=== PATIENT | male | born 1945 | race Caucasian/White ===

== ENCOUNTER 2017-07-15 20:43 | Emergency (ER) | payer MEDICARE ==
[~2017-07-15] VITALS: Ht 170.2 cm; Wt 83.4 kg
[~2017-07-15 20:43] MED LIST: ASPI-1264 PO; IRBE150T27 PO; MULT-1085 PO; SIMV20TA5 PO; TEST5GEL2 TOP
[2017-07-15 20:46] VITALS: BP 133/85
== END 2017-07-16 00:19 | disposition left against medical advice (07) ==
LOC: ER 20:44
DX: R06.00 Dyspnea, unspecified (principal); Z53.21 Procedure and treatment not carried out due to patient leaving prior to being seen by health care provider

== ENCOUNTER 2019-08-18 09:29 | Outpatient (CLI) | payer MEDICARE ==
[~2019-08-18 09:29] MED LIST changes: +IRBE150T24 PO; -IRBE150T27 PO; +SIMV-42 PO; -SIMV20TA5 PO
== END 2019-08-18 23:59 | disposition home or self-care (01) ==
LOC: LAB SPEC 09:29
PROVIDERS: ATTEND Orthopaedic Surgery
DX: L03.012 Cellulitis of left finger (principal)
CPT/HCPCS: 87070; 87077; 87186

== ENCOUNTER 2019-09-20 10:12 | Day surgery (SDC) | payer MEDICARE, BC ==
--- NOTE | 2019-09-15 12:13 | NUR ---
PT HAS NEGATIVE COVID TEST RESULTS FROM [facility] ON HIS PHONE FROM September. SPOKE WITH REGINO Phelan. SHE STATED OK TO USE THESE RESULTS.
[2019-09-15 12:51] LABS: CLARITY,URINE CLEAR (Clear); COLOR,URINE YELLOW (Yellow); GLUCOSE, URINE NEGATIVE (Neg); KETONES,URINE NEGATIVE (Neg); LEUKOCYTE ESTERASE ,URINE NEGATIVE (Neg); NITRITES, URINE NEGATIVE (Neg); OCCULT BLOOD,URINE NEGATIVE (Neg); PH,URINE 5.5 (4.8-8.0); PROTEIN,URINE NEGATIVE (Neg); UA COLLECTION TYPE VOIDED; UROBILINOGEN,URINE 0.2 E.U/dL (0.2-1.0)
[2019-09-15 12:52] LABS: BASOPHILS % (AUTO) 0.5 % (0-1); EOSINOPHILS # (AUTO) 0.1 X10'3 (0-0.9); EOSINOPHILS % (AUTO) 1.2 % (0-6); LYMPHOCYTES # (AUTO) 0.9 X10'3 (1.1-4.8); LYMPHOCYTES % (AUTO) 18.9 % (21-51); MEAN CORPUSCULAR HEMOGLOBIN 33.9 PG (27.0-31.0); MEAN CORPUSCULAR HGB CONC 33.8 g/dL (33.0-36.5); MEAN CORPUSCULAR VOLUME 100.3 FL (78-98); MEAN PLATELET VOLUME 8.2 FL (7.4-10.4); MONOCYTES # (AUTO) 0.4 X10'3 (0-0.9); MONOCYTES % (AUTO) 8.2 % (2-12); NEUTROPHILS # (AUTO) 3.5 X10'3 (1.8-7.7); NEUTROPHILS % (AUTO) 71.2 % (42-75); PRE OP HEMATOCRIT 40.5 % (42.0-52.0); PRE OP HEMOGLOBIN 13.7 g/dL (14.0-17.9); PRE OP PLATELET COUNT 180 X10'3 (140-440); RED BLOOD COUNT 4.04 X10'6 (4.70-6.10); RED CELL DISTRIBUTION WIDTH 13.4 % (11.5-14.5)
[2019-09-15 13:02] LABS: PRE OP PROTIME 10.7 SECONDS (9.0-12.0)
[2019-09-15 13:04] LABS: ALBUMIN 3.8 G/DL (3.4-5.0); ALBUMIN/GLOBULIN RATIO 1.3 (1.1-1.5); ALKALINE PHOSPHATASE 70 IU/L (46-116); BLOOD UREA NITROGEN 23 MG/DL (7-18); BUN/CREATININE RATIO 19.3 (5.4-32.0); CHLORIDE 104 MMOL/L (99-107); CREATININE 1.19 MG/DL (0.60-1.10); PRE OP ALT 21 U/L (30-65); PRE OP ANION GAP 6 (8-16); PRE OP AST 19 U/L (10-37); PRE OP BILIRUB, TOTAL 0.7 MG/DL (0.0-1.0); PRE OP GLUCOSE 145 MG/DL (70-104); PRE OP SODIUM 137 MMOL/L (135-145); TOTAL CARBON DIOXIDE 27.2 MMOL/L (24-32); TOTAL PROTEIN 6.8 G/DL (6.4-8.2); eGFR 60 ML/MIN
[~2019-09-20] VITALS: Ht 170.2 cm; Wt 92.0 kg
[2019-09-20] VITALS (7 sets, daily range): BP systolic 122–145; BP diastolic 65–93
[~2019-09-20 10:12] MED LIST changes: +CELE-193 PO; +ERGO400C PO; -MULT-1085 PO; +OMEP20TA5 PO; +ceFAZolin 2gm in dextrose, iso 50 ML IV ONE; +famotidine 20mg tablet PO ONE; +ringers solution, lacted 1,000 ML IV SCH
[2019-09-20] MEDS ORDERED: BUPIVAcaine/PF 2.5 mg/ml (0.25%) 30ml vial ONE ×2 (11:44→11:52)
[2019-09-20] MEDS ORDERED: ceFAZolin 1000mg inj ONE (11:44)
[2019-09-20] MEDS ORDERED: ringers solution, lacted 1,000 ML IV SCH (12:27)
[2019-09-20] MEDS ORDERED: hydrALAZINE 20mg/ml inj. IV PRN (12:30)
[2019-09-20] MEDS ORDERED: morphine 4 MG/ML inj SYRINge IV PRN (12:30)
[2019-09-20] MEDS ORDERED: fentaNYL/PF 50MCG/1 ML 2ML syringe IV PRN ×2 (12:30)
[2019-09-20] MEDS ORDERED: morphine 2 MG/ML inj. syringe IV PRN (12:30)
[2019-09-20] MEDS ORDERED: ondansetron/PF 4mg/2ml inj IV PRN (12:30)
[2019-09-20] MEDS ORDERED: labetalol 20mg/4ml (5mg/ml) syringe IV PRN (12:30)
[2019-09-20] MEDS ORDERED: midazolam 2 mg/2 ml injection ONE (12:37)
[2019-09-20] MEDS ORDERED: fentaNYL/PF 50MCG/1 ML 2ML syringe ONE (12:37)
[2019-09-20] MEDS ORDERED: rocuronium 10mg/ml inj IV ONE (12:38)
[2019-09-20] MEDS ORDERED: LIDOcaine 2% (20mg/ml) 5ml vial ONE (12:39)
[2019-09-20] MEDS ORDERED: propofol inj 20 ML IV ONE (12:39)
[2019-09-20] MEDS ORDERED: ondansetron/PF 4mg/2ml inj ONE (12:39)
[2019-09-20] MEDS ORDERED: sevoflurane 250ml liquid IH ONE (13:18)
[2019-09-20] MEDS ORDERED: dexamethasone sod phosphate 10mg/ml inj ONE (13:18)
[2019-09-20] MEDS ORDERED: glycopyrrolate 0.2mg/ml inj ONE (13:18)
[2019-09-20] MEDS ORDERED: labetalol 20mg/4ml (5mg/ml) syringe IV ONE (13:46)
[2019-09-20] MEDS ORDERED: neostigmine methylsulfate 1 MG/ML 10ml vial ONE (13:54)
--- NOTE | 2019-09-20 15:02 | NUR ---
All dc criteria for discharge home has been met. IV taken out without complications. All questions answered regarding dc paperwork. Vss. Significant other present to take patient home. Dressings cdi and vital signs stable. Taken out via wheelchair to personal vehicle where patient taken home by family/friend. Addendum: 09/20/19 at 1803 by Jac Morgan RN, RN Amended: Links added.
== END 2019-09-20 15:02 | disposition home or self-care (01) ==
LOC: PAS 10:12
PROVIDERS: ATTEND Surgery
DX: R10.30 Lower abdominal pain, unspecified (principal); K66.0 Peritoneal adhesions (postprocedural) (postinfection); M19.90 Unspecified osteoarthritis, unspecified site; K21.9 Gastro-esophageal reflux disease without esophagitis; I10 Essential (primary) hypertension; Z98.890 Other specified postprocedural states; Z79.899 Other long term (current) drug therapy; Z96.611 Presence of right artificial shoulder joint; Z72.89 Other problems related to lifestyle; Z86.14 Personal history of Methicillin resistant Staphylococcus aureus infection; Z88.5 Allergy status to narcotic agent
CPT/HCPCS: 36415; 49329; 80053; 81003; 82948; 85025; 85610; 85730; 93005; C1727; J0690; J1100; J2001; J2250; J2405; J2704; J2710; J3010; J3490; J7120; A4215; A4314; A4618; A6258

== ENCOUNTER 2022-06-19 07:54 | Day surgery (SDC) | payer MEDICARE, BC ==
[2022-06-19] VITALS (10 sets, daily range): BP systolic 104–139; BP diastolic 71–87
[~2022-06-19] VITALS: Ht 170.2 cm; Wt 86.2 kg
[~2022-06-19 07:54] MED LIST changes: +OMEP20TA43 PO; -OMEP20TA5 PO; -ceFAZolin 2gm in dextrose, iso 50 ML IV ONE; -famotidine 20mg tablet PO ONE; -ringers solution, lacted 1,000 ML IV SCH
[2022-06-19] MEDS ORDERED: normal saline 1,000 ML IV SCH (08:20)
[2022-06-19] MEDS ORDERED: diphenhydrAMINE 25mg capsule PO PRN (08:20)
[2022-06-19] MEDS ORDERED: sodium bicarbonate 1meq/ml syr 150 ML in dextrose 5%-water 850 ML IV ONE (08:20)
[2022-06-19] MEDS ORDERED: FURO20TA4 PO (08:28)
[2022-06-19] MEDS ORDERED: METO-395 PO (08:28)
[2022-06-19] MEDS ORDERED: RIVA20TA PO (08:29)
[2022-06-19] MEDS ORDERED: EMPA10TA PO (08:29)
[2022-06-19] MEDS ORDERED: SPIR25TA5 PO (08:30)
[2022-06-19 09:01] LABS: BASOPHILS % (AUTO) 0.3 % (0-1); EOSINOPHILS # (AUTO) 0.1 X10'3 (0-0.9); EOSINOPHILS % (AUTO) 2.2 % (0-6); HEMATOCRIT 49.9 % (42.0-52.0); LYMPHOCYTES # (AUTO) 1.1 X10'3 (1.1-4.8); LYMPHOCYTES % (AUTO) 19.7 % (21-51); MEAN CORPUSCULAR HEMOGLOBIN 34.7 PG (27.0-31.0); MEAN CORPUSCULAR HGB CONC 34.2 g/dL (33.0-36.5); MEAN CORPUSCULAR VOLUME 101.6 FL (78-98); MEAN PLATELET VOLUME 7.8 FL (7.4-10.4); MONOCYTES # (AUTO) 0.5 X10'3 (0-0.9); MONOCYTES % (AUTO) 10.1 % (2-12); NEUTROPHILS # (AUTO) 3.6 X10'3 (1.8-7.7); NEUTROPHILS % (AUTO) 67.7 % (42-75); PLATELET COUNT 209 X10'3 (140-440); RED BLOOD COUNT 4.91 X10'6 (4.70-6.10); RED CELL DISTRIBUTION WIDTH 13.7 % (11.5-14.5); WHITE BLOOD COUNT 5.4 X10'3 (4.5-11.0)
[2022-06-19 09:08] LABS: ANION GAP 7 (8-16); BLOOD UREA NITROGEN 26 MG/DL (7-18); BUN/CREATININE RATIO 18.7 (5.4-32.0); CALCIUM 9.1 MG/DL (8.5-10.1); CHLORIDE 101 MMOL/L (99-107); CREATININE 1.39 MG/DL (0.60-1.10); GLUCOSE 91 MG/DL (70-104); MAGNESIUM 2.1 MG/DL (1.5-2.4); SODIUM 139 MMOL/L (135-145); TOTAL CARBON DIOXIDE 30.8 MMOL/L (24-32); eGFR 50 ML/MIN
[2022-06-19] MEDS ORDERED: heparin 1,000unit/ml 10ml vial 10 ML ONE (10:51)
[2022-06-19] MEDS ORDERED: iohexol 350MG/ML 100ml bottle IV ONE (10:51)
[2022-06-19] MEDS ORDERED: nitroGLYCERIN-Tridil 50MG/D5W 250 ML IV ONE (10:51)
[2022-06-19] MEDS ORDERED: LIDOcaine 1% 30ml preserv. free vial ONE (10:51)
[2022-06-19] MEDS ORDERED: fentaNYL/PF 50MCG/1 ML 2ML syringe ONE (10:51)
[2022-06-19] MEDS ORDERED: midazolam 1 mg/ML 2ml injection ONE ×2 (10:51→12:42)
[2022-06-19] MEDS ORDERED: verapamil 2.5 mg/ml inj IV ONE (10:51)
[2022-06-19] MEDS ORDERED: iohexol 350 MG/ML 50ML vial IV ONE (10:52)
[2022-06-19] MEDS ORDERED: proCHLORperazine 10 MG/2 ml inj ONE (12:42)
[2022-06-19] MEDS ORDERED: HYDROcodone/acetaminophen 5mg/325mg tablet PO PRN (13:55)
[2022-06-19] MEDS ORDERED: HYDROcodone/acetaminophen 10/325mg tab PO PRN (13:55)
[2022-06-19] MEDS ORDERED: proCHLORperazine 10 MG/2 ml inj IV PRN (13:55)
[2022-06-19] MEDS ORDERED: normal saline 1000ml 1,000 ML IV SCH (13:55)
[2022-06-19] MEDS ORDERED: ondansetron/PF 4mg/2ml inj IV PRN (13:55)
== END 2022-06-19 17:00 | disposition home or self-care (01) ==
LOC: SSTAY O 07:54
PROVIDERS: ATTEND Internal Medicine Cardiovascular Disease
DX: R07.89 Other chest pain (principal); I48.91 Unspecified atrial fibrillation; I10 Essential (primary) hypertension; E78.00 Pure hypercholesterolemia, unspecified; Z96.641 Presence of right artificial hip joint; Z96.652 Presence of left artificial knee joint; Z98.890 Other specified postprocedural states; Z96.611 Presence of right artificial shoulder joint; Z96.612 Presence of left artificial shoulder joint; Z72.89 Other problems related to lifestyle; Z79.899 Other long term (current) drug therapy; Z81.8 Family history of other mental and behavioral disorders
CPT/HCPCS: 36415; 80048; 83735; 85025; 85610; 93005; 93458; 99152; 99153; C1769; C1894; J0780; J1644; J2250; J3010; J3490; J7030; Q0163; Q9967; A6258; A6402

== ENCOUNTER 2022-10-09 06:45 | Day surgery (SDC) | payer MEDICARE, BC ==
[2022-10-09] VITALS (12 sets, daily range): BP systolic 94–123; BP diastolic 55–81
[~2022-10-09] VITALS: Ht 170.2 cm; Wt 89.1 kg
[~2022-10-09 06:45] MED LIST changes: -ASPI-1264 PO; +EMPA10TA PO; -ERGO400C PO; +FURO20TA4 PO; +METO-395 PO; +RIVA20TA PO; +SPIR25TA5 PO
[2022-10-09] MEDS ORDERED: MIDAZolam 1mg/ml 10ml vial IV ONE (07:05)
[2022-10-09] MEDS ORDERED: normal saline 1000ml 1,000 ML IV SCH ×2 (07:05→07:25)
[2022-10-09] MEDS ORDERED: TEST200V33 IM (07:08)
[2022-10-09] MEDS ORDERED: fentaNYL/PF 50MCG/1 ML 2ML syringe IV ONE (07:25)
[2022-10-09] MEDS ORDERED: morphine 10mg/ml inj. IV ONE (07:25)
[2022-10-09 07:28] LABS: BASOPHILS % (AUTO) 0.4 % (0-1); EOSINOPHILS # (AUTO) 0.1 X10'3 (0-0.9); EOSINOPHILS % (AUTO) 1.8 % (0-6); HEMATOCRIT 44.3 % (42.0-52.0); HEMOGLOBIN 15.3 g/dl (14.0-17.9); LYMPHOCYTES % (AUTO) 18.8 % (21-51); MEAN CORPUSCULAR HEMOGLOBIN 36.3 PG (27.0-31.0); MEAN CORPUSCULAR HGB CONC 34.5 g/dL (33.0-36.5); MEAN CORPUSCULAR VOLUME 105.2 FL (78-98); MEAN PLATELET VOLUME 7.8 FL (7.4-10.4); MONOCYTES # (AUTO) 0.6 X10'3 (0-0.9); MONOCYTES % (AUTO) 10.9 % (2-12); NEUTROPHILS # (AUTO) 3.8 X10'3 (1.8-7.7); NEUTROPHILS % (AUTO) 68.1 % (42-75); PLATELET COUNT 187 X10'3 (140-440); RED BLOOD COUNT 4.21 X10'6 (4.70-6.10); WHITE BLOOD COUNT 5.6 X10'3 (4.5-11.0)
[2022-10-09 08:02] LABS: ALBUMIN 3.9 G/DL (3.4-5.0); ANION GAP 8 (8-16); BLOOD UREA NITROGEN 33 MG/DL (7-18); BUN/CREATININE RATIO 20.2 (10.0-20.0); CHLORIDE 105 MMOL/L (99-107); CREATININE 1.63 MG/DL (0.60-1.10); GLUCOSE 107 MG/DL (70-104); MAGNESIUM 2.4 MG/DL (1.5-2.4); POTASSIUM 5.5 MMOL/L (3.5-5.1); SODIUM 137 MMOL/L (135-145); TOTAL CARBON DIOXIDE 24.4 MMOL/L (24-32); eGFR 41 ML/MIN
== END 2022-10-09 10:45 | disposition home or self-care (01) ==
LOC: SSTAY O 06:45
PROVIDERS: ATTEND Internal Medicine Cardiovascular Disease
DX: I48.91 Unspecified atrial fibrillation (principal); E11.9 Type 2 diabetes mellitus without complications; E78.00 Pure hypercholesterolemia, unspecified; I10 Essential (primary) hypertension; Z96.641 Presence of right artificial hip joint; Z96.652 Presence of left artificial knee joint; Z96.611 Presence of right artificial shoulder joint; Z96.612 Presence of left artificial shoulder joint; Z72.89 Other problems related to lifestyle; Z98.890 Other specified postprocedural states; Z79.899 Other long term (current) drug therapy; Z81.8 Family history of other mental and behavioral disorders
CPT/HCPCS: 36415; 80048; 83735; 85025; 85610; 92960; 93005; J2250; J3010; J7030; A4620

== ENCOUNTER 2022-10-23 22:54 | Emergency (ER) | payer MEDICARE, BC ==
[~2022-10-23] VITALS: Ht 170.2 cm; Wt 86.4 kg
[~2022-10-23 22:54] MED LIST changes: -METO-395 PO; +TEST200V33 IM; -TEST5GEL2 TOP
--- NOTE | 2022-10-23 23:53 | NUR ---
acs protocol ordered as pt reports afib
[2022-10-24 00:33] LABS: BASOPHILS % (AUTO) 0.2 % (0-1); EOSINOPHILS # (AUTO) 0.2 X10'3 (0-0.9); EOSINOPHILS % (AUTO) 2.7 % (0-6); HEMATOCRIT 43.1 % (42.0-52.0); HEMOGLOBIN 14.7 g/dl (14.0-17.9); LYMPHOCYTES # (AUTO) 1.3 X10'3 (1.1-4.8); LYMPHOCYTES % (AUTO) 21.4 % (21-51); MEAN CORPUSCULAR HEMOGLOBIN 35.4 PG (27.0-31.0); MEAN CORPUSCULAR VOLUME 104.2 FL (78-98); MEAN PLATELET VOLUME 7.7 FL (7.4-10.4); MONOCYTES # (AUTO) 0.8 X10'3 (0-0.9); NEUTROPHILS # (AUTO) 3.8 X10'3 (1.8-7.7); NEUTROPHILS % (AUTO) 62.7 % (42-75); PLATELET COUNT 198 X10'3 (140-440); RED BLOOD COUNT 4.14 X10'6 (4.70-6.10); RED CELL DISTRIBUTION WIDTH 13.6 % (11.5-14.5); WHITE BLOOD COUNT 6.1 X10'3 (4.5-11.0)
[2022-10-24 00:36] LABS: ALANINE AMINOTRANSFERASE 64 U/L (12-78); ALBUMIN 3.8 G/DL (3.4-5.0); ALBUMIN/GLOBULIN RATIO 1.1 (1.1-1.5); ALKALINE PHOSPHATASE 130 IU/L (46-116); ANION GAP 11 (8-16); ASPARTATE AMINO TRANSFERASE 36 U/L (10-37); BILIRUBIN,TOTAL 0.5 MG/DL (0.1-1.0); BLOOD UREA NITROGEN 44 MG/DL (7-18); CHLORIDE 105 MMOL/L (99-107); CREATININE 1.91 MG/DL (0.60-1.10); GLUCOSE 108 MG/DL (70-104); POTASSIUM 5.2 MMOL/L (3.5-5.1); SODIUM 135 MMOL/L (135-145); TOTAL CARBON DIOXIDE 19.5 MMOL/L (24-32); TOTAL PROTEIN 7.4 G/DL (6.4-8.2); eGFR 35 ML/MIN
[2022-10-24] MEDS ORDERED: normal saline 1000ml 1,000 ML IVB ONE (01:20)
[2022-10-24] MEDS ORDERED: sodium polystyrene sulfonate 15gm/60ml oral suspension PO STA (01:34)
[2022-10-24 02:00] VITALS: BP 108/65
== END 2022-10-24 02:01 | disposition home or self-care (01) ==
LOC: ER 22:56
DX: I48.0 Paroxysmal atrial fibrillation (principal); E86.0 Dehydration; N28.9 Disorder of kidney and ureter, unspecified
CPT/HCPCS: 36415; 71045; 80053; 83880; 84484; 85025; 93005; 99285; J7030

== ENCOUNTER 2022-11-13 08:19 | Day surgery (SDC) | payer MEDICARE, BC ==
[2022-11-13] VITALS (11 sets, daily range): BP systolic 104–139; BP diastolic 65–89
[~2022-11-13] VITALS: Ht 170.2 cm; Wt 86.5 kg
[2022-11-13] MEDS ORDERED: MIDAZolam 1mg/ml 10ml vial IV ONE (08:55)
[2022-11-13] MEDS ORDERED: fentaNYL/PF 50MCG/1 ML 2ML syringe IV ONE (08:55)
[2022-11-13] MEDS ORDERED: normal saline 1000ml 1,000 ML IV SCH (08:55)
[2022-11-13 09:15] LABS: BASOPHILS % (AUTO) 0.8 % (0-1); EOSINOPHILS # (AUTO) 0.1 X10'3 (0-0.9); EOSINOPHILS % (AUTO) 2.6 % (0-6); HEMATOCRIT 42.3 % (42.0-52.0); HEMOGLOBIN 14.4 g/dl (14.0-17.9); LYMPHOCYTES # (AUTO) 0.9 X10'3 (1.1-4.8); LYMPHOCYTES % (AUTO) 21.9 % (21-51); MEAN PLATELET VOLUME 7.6 FL (7.4-10.4); MONOCYTES # (AUTO) 0.4 X10'3 (0-0.9); NEUTROPHILS # (AUTO) 2.7 X10'3 (1.8-7.7); NEUTROPHILS % (AUTO) 64.7 % (42-75); PLATELET COUNT 219 X10'3 (140-440); RED BLOOD COUNT 3.99 X10'6 (4.70-6.10); RED CELL DISTRIBUTION WIDTH 13.2 % (11.5-14.5); WHITE BLOOD COUNT 4.2 X10'3 (4.5-11.0)
[2022-11-13] MEDS ORDERED: MAGN100T6 PO (09:15)
[2022-11-13] MEDS ORDERED: VITA-268 PO (09:15)
[2022-11-13] MEDS ORDERED: ASCO500C17 PO (09:15)
[2022-11-13] MEDS ORDERED: PROP325C5 PO (09:15)
[2022-11-13] MEDS ORDERED: ESOM20CA38 PO (09:15)
[2022-11-13] MEDS ORDERED: CHOL100046 PO (09:15)
[2022-11-13 09:23] LABS: ALBUMIN 3.7 G/DL (3.4-5.0); ANION GAP 10 (8-16); BLOOD UREA NITROGEN 31 MG/DL (7-18); CALCIUM 8.8 MG/DL (8.5-10.1); CHLORIDE 104 MMOL/L (99-107); CREATININE 1.72 MG/DL (0.60-1.10); GLUCOSE 94 MG/DL (70-104); MAGNESIUM 2.2 MG/DL (1.5-2.4); POTASSIUM 4.2 MMOL/L (3.5-5.1); SODIUM 139 MMOL/L (135-145); TOTAL CARBON DIOXIDE 25.2 MMOL/L (24-32); eGFR 39 ML/MIN
== END 2022-11-13 12:30 | disposition home or self-care (01) ==
LOC: SSTAY O 08:19
PROVIDERS: ATTEND Internal Medicine Cardiovascular Disease
DX: I48.91 Unspecified atrial fibrillation (principal); E78.00 Pure hypercholesterolemia, unspecified; I10 Essential (primary) hypertension; E11.9 Type 2 diabetes mellitus without complications; Z79.899 Other long term (current) drug therapy; Z96.612 Presence of left artificial shoulder joint; Z96.611 Presence of right artificial shoulder joint; Z96.652 Presence of left artificial knee joint; Z98.890 Other specified postprocedural states; Z96.641 Presence of right artificial hip joint; Z72.89 Other problems related to lifestyle; Z81.8 Family history of other mental and behavioral disorders
CPT/HCPCS: 36415; 80048; 83735; 85025; 85610; 92960; 93005; J2250; J3010; J7030; A4620

== ENCOUNTER 2024-04-10 13:02 | Emergency (ER) | payer MEDICARE, BC ==
[~2024-04-10] VITALS: Ht 170.2 cm; Wt 89.8 kg
[~2024-04-10 13:02] MED LIST changes: +ASCO500C17 PO; -CELE-193 PO; +CHOL100046 PO; -EMPA10TA PO; +ESOM20CA50 PO; -FURO20TA4 PO; -IRBE150T24 PO; +IRBE150T34 PO; +MAGN100T6 PO; +METO-395 PO; -OMEP20TA43 PO; +PROP325C17 PO; -SPIR25TA5 PO; +UBID200C37 PO; +VITA-268 PO
[2024-04-10 13:31] VITALS: BP 138/81; PULSE 71; TEMP 97.8; O2SAT 98
[2024-04-10 14:22] VITALS: RESP 18
== END 2024-04-10 14:23 | disposition home or self-care (01) ==
LOC: ER 13:03
DX: M79.642 Pain in left hand (principal); I48.91 Unspecified atrial fibrillation; M79.89 Other specified soft tissue disorders
CPT/HCPCS: 73130; 99283

== ENCOUNTER 2024-08-02 09:55 | Emergency (ER) | payer MEDICARE, BC ==
[~2024-08-02] VITALS: Ht 170.2 cm; Wt 84.1 kg
[2024-08-02] MEDS ORDERED: iohexol 300mg/ml 100ml inj. ONE (11:26)
[2024-08-02] MEDS: CefTRIAXone/D5W-Rocephin 1gm 50 ML IV ONE (11:37)
[2024-08-02 11:39] LABS: BASOPHILS % (AUTO) 0.5 % (0-1); EOSINOPHILS # (AUTO) 0.1 X10'3 (0-0.9); EOSINOPHILS % (AUTO) 1.1 % (0-6); HEMATOCRIT 47.6 % (42.0-52.0); HEMOGLOBIN 15.8 g/dl (14.0-17.9); LYMPHOCYTES % (AUTO) 18.9 % (21-51); MEAN CORPUSCULAR HEMOGLOBIN 33.9 PG (27.0-31.0); MEAN CORPUSCULAR HGB CONC 33.2 g/dL (33.0-36.5); MEAN PLATELET VOLUME 8.1 FL (7.4-10.4); MONOCYTES # (AUTO) 0.6 X10'3 (0-0.9); NEUTROPHILS # (AUTO) 3.8 X10'3 (1.8-7.7); NEUTROPHILS % (AUTO) 68.5 % (42-75); PLATELET COUNT 233 X10'3 (140-440); RED BLOOD COUNT 4.67 X10'6 (4.70-6.10); RED CELL DISTRIBUTION WIDTH 14.3 % (11.5-14.5); WHITE BLOOD COUNT 5.5 X10'3 (4.5-11.0)
[2024-08-02 11:53] LABS: ALANINE AMINOTRANSFERASE 33 U/L (12-78); ALBUMIN 3.9 G/DL (3.4-5.0); ALKALINE PHOSPHATASE 78 IU/L (46-116); ANION GAP 9 (8-16); ASPARTATE AMINO TRANSFERASE 29 U/L (10-37); BILIRUBIN,TOTAL 0.6 MG/DL (0.1-1.0); BLOOD UREA NITROGEN 31 MG/DL (7-18); C-REACTIVE PROTEIN 0.93 MG/DL (0.0-0.5); CALCIUM 8.6 MG/DL (8.5-10.1); CHLORIDE 104 MMOL/L (99-107); CREATININE 1.55 MG/DL (0.60-1.10); GLUCOSE 107 MG/DL (70-104); POTASSIUM 4.8 MMOL/L (3.5-5.1); SODIUM 138 MMOL/L (135-145); TOTAL CARBON DIOXIDE 25.3 MMOL/L (24-32); TOTAL PROTEIN 7.8 G/DL (6.4-8.2); eCRCL 37 ML/MIN; eGFR 44 ML/MIN
[2024-08-02] MEDS: clindamycin 300mg/D5W 50mL 50 ML IV ONE (12:12)
[2024-08-02] MEDS ORDERED: CLIN300C63 PO (13:44)
[2024-08-02 14:05] VITALS: BP 134/76; PULSE 74; RESP 18; TEMP 98.7; O2SAT 98
== END 2024-08-02 14:06 | disposition home or self-care (01) ==
LOC: ER 09:56
DX: T81.49XA Infection following a procedure, other surgical site, initial encounter (principal); L02.212 Cutaneous abscess of back [any part, except buttock and flank]; I48.91 Unspecified atrial fibrillation; X58.XXXA Exposure to other specified factors, initial encounter; Y92.89 Other specified places as the place of occurrence of the external cause; Y93.89 Activity, other specified; Y99.8 Other external cause status
CPT/HCPCS: 36415; 74177; 80053; 83605; 84145; 85025; 85651; 86140; 87040; 96365; 96367; 99285; J0696; J3490; Q9967